=== PATIENT | female | born 1985 | race Caucasian/White ===

== ENCOUNTER 2016-07-21 13:07 | Emergency (ER) | payer MEDICAID ==
[~2016-07-21] VITALS: Ht 154.9 cm; Wt 70.5 kg
[~2016-07-21 13:07] MED LIST: CEPHALEXIN500 M1 PO; MOTRIN 600600 MG/TAB PO; NO HOME MEDICATIONS; NORCO 325 MG-7.1 TAB PO; PERCOCET 325 MG1 TA2 PO; PHENERGAN 25 TA25 MG PO; PHENERGAN25 MG RC; ZITHROMAX 250M250 MG PO
[2016-07-21 13:16] VITALS: BP 123/86; PULSE 107; TEMP 98
[2016-07-21] MEDS ORDERED: DOXYCYCLINE HY100 MG PO (14:47)
== END 2016-07-21 14:52 | disposition home or self-care (01) ==
LOC: COL.ER 13:07
DX: L02.211 Cutaneous abscess of abdominal wall (principal)